=== PATIENT | female | born 1985 | race Caucasian/White ===

== ENCOUNTER 2016-10-27 08:36 | Day surgery (SDC) | payer OTHER, MEDICAID ==
[~2016-10-27] VITALS: Ht 165.1 cm; Wt 278.6 kg
--- NOTE | ~2016-10-27 | OR ---
PATIENT'S NAME: SANTIAGO RM [facility] AGE: 31 Y [address] ROOM: [place] [id number] LOCATION: GOBS ADMIT DATE: 10/27/2016 OR/Procedure Report DISCHARGE DATE: FAMILY PHYSICIAN: PHYSICIAN, NO ATTENDING PHYSICIAN: JAYLEN HERNANDEZ SURGEON: Jaylen Hernandez MD GROCERY STORE CLERK: Jay Slaughter MD. His assistance was required for adequate visualization of the cervix. DATE OF PROCEDURE: 10/27/2016 PREOPERATIVE DIAGNOSES: 1. Intrauterine at 15 weeks 0 days. 2. History of cervical insufficiency. 3. Chronic hypertension. 4. Obesity. POSTOPERATIVE DIAGNOSES: 1. Intrauterine at 15 weeks 0 days. 2. History of cervical insufficiency. 3. Chronic hypertension. 4. Obesity. PROCEDURE PERFORMED: Fry cervical cerclage placement. FINDINGS: Cervix closed and thick, evidence of previous cervical cerclage is noted, small amount of old blood noted in the vagina, cervix long and thick after the procedure. ESTIMATED BLOOD LOSS: 2 mL. ANESTHESIA: Spinal. COMPLICATIONS: None. INDICATIONS: The patient is a 31-year-old G4, P1-2-0-2 with intrauterine at 15 weeks 0 days. The patient's first was complicated by a 23-week delivery. In her next 2 pregnancies, she subsequently had prophylactic cerclage placed. She delivered at 32 weeks for labor and breech presentation via section with her second . Her third , she made it term and delivered via section. Given her history of previous , she desires cervical cerclage placement. She was counseled about the risks of surgery to include bleeding, infection, damage to surrounding organs and tissues including bowel, bladder, blood vessels, nerves. She is also counseled about the risk of loss with the procedure and rupture of membranes. The patient did report some bleeding PATIENT'S NAME: SANTIAGO RM [facility] AGE: 31 Y [address] ROOM: [place] [address] LOCATION: [facility] ADMIT DATE: 10/27/2016 OR/Procedure Report DISCHARGE DATE: FAMILY PHYSICIAN: PHYSICIAN, NO ATTENDING PHYSICIAN: JAYLEN HERNANDEZ with wiping on the morning of the procedure. However, heart tones were obtained and were normal via ultrasound and the patient denied any cramping. Therefore, it was decided to proceed with the procedure. DESCRIPTION OF PROCEDURE: The patient was taken to the operating room where spinal anesthesia was placed without difficulty. She was then placed in dorsal lithotomy position. She was prepped and draped in the usual sterile fashion. A time-out was performed. Her bladder was drained of urine. A weighted speculum was placed in the patient's vagina posteriorly and anteriorly. A retractor was used to visualize the cervix. A small amount of blood was noted in the vagina. The vagina was cleaned with Betadine again 3 times. Evidence of prior cerclage was noted. A stitch of 0-Prolene was placed from 12 o'clock to 9 o'clock and then from 9'o clock to 6'o clock and then from 6 o'clock to 3'o clock and then 3 o'clock to 12'o clock again. A bolster was placed and the suture was tied down with 12 knots at the 12 o'clock position. The strings were left long. The cervix was again noted to be long and thick. Instrument, sponge, and needle counts were correct at the conclusion of case. DISPOSITION: Mom taken to room for recovery, stable. MD ALEXANDRA POOL/bandar /[id number] d: 10/27/16 1234 t: 11/10/16 0845, OPERATIVE SUMMARY
[~2016-10-27 08:36] MED LIST: LEXAPRO10 MG PO; NIFEDIPINE ER60 M1 PO; PRENATAL 1+1)(P1 TAB PO
[2016-10-27 09:50] LABS: BASOPHIL % 0.2 %; EOSINOPHIL # 0.1 K/uL (0.0-0.5); EOSINOPHIL % 0.4 %; HEMATOCRIT 36.1 % (33.0-46.0); HEMOGLOBIN 12.5 g/dL (11.0-15.0); IMMATURE GRANULOCYTE # 0.1 K/uL (0.0-0.3); IMMATURE GRANULOCYTE % 0.5 %; LYMPHOCYTE # 2.7 K/uL (0.8-4.0); LYMPHOCYTE % 22.7 %; MCH 32.2 pg (27.0-34.0); MCHC 34.6 gm/dL (32.0-36.5); MONOCYTE # 0.7 K/uL (0.0-1.0); MONOCYTE % 5.4 %; MPV 9.9 fl (9.4-12.4); NEUTROPHIL # (ANC) 8.5 K/uL (1.8-7.8); NEUTROPHIL % 70.8 %; NRBC % 0 /100WBC (0-0.00); PLATELET COUNT 291 K/uL (150-450); RBC 3.88 M/uL (3.50-5.50); RDW-CV 13.6 % (11.9-14.6); WBC 12.1 K/uL (4.0-11.0)
== END 2016-10-27 18:10 | disposition disaster alternative care site (69) ==
LOC: GOBS 08:36 → GOBM 08:36
PROVIDERS: Obstetrics & Gynecology
PROC: 0UVC7ZZ Restriction of Cervix, Via Natural or Artificial Opening (ICD-10-PCS; principal; 2016-10-27)
DX: O34.32 Maternal care for cervical incompetence, second trimester (principal); Z3A.15 15 weeks gestation of pregnancy; O10.912 Unspecified pre-existing hypertension complicating pregnancy, second trimester; O34.219 Maternal care for unspecified type scar from previous cesarean delivery; O99.212 Obesity complicating pregnancy, second trimester; Z79.899 Other long term (current) drug therapy
CPT/HCPCS: G0463; J7120

== ENCOUNTER → 2016-12-02 | Outpatient (CLI) | payer MEDICAID | END | disposition disaster alternative care site (69) | LOC: GLAB 07:52 | DX: Z36 Encounter for antenatal screening of mother (principal) ==

== ENCOUNTER 2016-12-18 09:47 | Inpatient (IN) | payer MEDICAID ==
[~2016-12-18] VITALS: Ht 165.1 cm
--- NOTE | ~2016-12-18 | OR ---
[facility] 31 Y [address] ROOM: [place] [id number] LOCATION: GOBS ADMIT DATE: 12/18/2016 OR/Procedure Report DISCHARGE DATE: FAMILY PHYSICIAN: PHYSICIAN, NO ATTENDING PHYSICIAN: JAYLEN HERNANDEZ SURGEON: Jaylen Hernandez MD GARDEN MACHINERY MECHANIC: DATE OF PROCEDURE: 12/18/2016 PREOPERATIVE DIAGNOSES: 1. Intrauterine at 22 weeks 4 days. 2. Heavy vaginal bleeding. 3. History of cervical insufficiency with cerclage in place. 4. Cervical dilation. 5. Obesity. 6. Tobacco abuse. 7. Gestational diabetes, A1. 8. History of delivery x2. POSTOPERATIVE DIAGNOSES: 1. Intrauterine at 22 weeks 4 days. 2. Heavy vaginal bleeding. 3. History of cervical insufficiency with cerclage in place. 4. Cervical dilation. 5. Obesity. 6. Tobacco abuse. 7. Gestational diabetes, A1. 8. History of delivery x2. 9. Cervical laceration. PROCEDURES PERFORMED: 1. Exam under anesthesia. 2. Repair of cervical laceration. ANESTHESIA: General. FINDINGS: No cervical cerclage noted in the cervix or vagina. A 3 cm cervical laceration was noted at the 10 o'clock position extending up toward the uterus. Cervix dilated to 2 cm with clot noted at the internal os. heart tones 168 on ultrasound. After the procedure, the patient was noted to still have a clot over her cervix. Fluid pocket of 5.99. EBL intraoperatively of 250 mL, preoperatively 500 mL since arrival to Labor and Delivery. COMPLICATIONS: None. PATIENT'S NAME: SANTAIGO RM [facility] AGE: 31 Y [address] ROOM: [address] [address] LOCATION: GOBS ADMIT DATE: 12/18/2016 OR/Procedure Report DISCHARGE DATE: FAMILY PHYSICIAN: PHYSICIAN, NO ATTENDING PHYSICIAN: JAYLEN HERNANDEZ INDICATIONS: The patient is a 31-year-old G4, P1-2-0-2, with intrauterine at 22 weeks 4 days who presented to [place] today complaining of vaginal bleeding starting at 4:30. She also reports uterine cramping. The patient did report having intercourse last night around 11:30 p.m. The patient was noted to be bleeding heavily, could not be adequately examined in [place], and therefore was transferred here. This patient's has been complicated by a history of cervical insufficiency with a 23-week delivery in 2003, followed by a term delivery in 2006 vaginal that had a prophylactic cerclage, and then a 32-week delivery via for labor and breech presentation that also had a prophylactic cerclage placed. The patient had a prophylactic cerclage placed for this . She has had a prior episode of vaginal bleeding without cervical dilation. She presented here and was noted to have heavy vaginal bleeding. She did have a pack in the vagina, 5 sponges, that were removed. Adequate visualization of the cervix could not be performed due to the obesity and heavy bleeding. The stitch was palpated and could be cut just with palpation with the scissors, and this was removed as it had pulled out. The patient was noted to continue to bleed heavily. EBL was at least 500. Her hemoglobin prior to transfer was 11.7, was checked here, and was found to be 9.4. Given that we could not adequately visualize what was going on, and the patient was bleeding heavily, it was recommended we take her to the OR for examination under anesthesia. The patient was counseled about this. She was also counseled about the risk of delivery while we were in the OR. She and her both were wanting resuscitation of this fetus, and therefore Pediatrics was consulted to discuss viability with the patient's as the patient needed to go back to the OR immediately due to the bleeding. DESCRIPTION OF PROCEDURE: The patient was taken to the OR where she was placed under general anesthesia without complications. She was placed in dorsal lithotomy position. She was prepped externally, but not internally given her heavy bleeding and unknown source. A time-out was performed. A weighted speculum was placed in the patient's vagina posteriorly, and right- angled retractors were used anteriorly and on the side to visualize the cervix. The patient was noted to have a 3 to 4 cm defect in her cervix at the 10 o'clock position extending up. She was also noted to be about 2 cm dilated and had a large amount of clot at her internal os that could be palpated. This defect was closed with 5 [id number] sutures of 0 Vicryl. Bleeding was noted to significantly decrease after this. An ultrasound was performed at the bedside, and heart tones were noted to be 168. There was a large amount of clot over the cervix. Of note, the patient has had multiple vaginal ultrasounds in this and does not have a placenta previa. Given that the bleeding had minimized and the patient was stable, the procedure was determined to be over at this time, and delivery of the fetus was not going to be performed in the OR. Instrument, sponge, and needle counts were correct at PATIENT'S NAME: SANTIAGO RM [facility] AGE: 31 Y [address] ROOM: [place] [address] LOCATION: [facility] ADMIT DATE: 12/18/2016 OR/Procedure Report DISCHARGE DATE: FAMILY PHYSICIAN: PHYSICIAN, DELMY ATTENDING PHYSICIAN: JAYLEN HERNANDEZ the conclusion of the case. DISPOSITION: Mother stable, to her room for recovery. MD ALEXANDRA POOL/bandar /[id number] d: 12/18/16 1523 t: 12/19/16 1343, OPERATIVE SUMMARY
--- NOTE | ~2016-12-18 | HP ---
PATIENT'S NAME: SANTIAGO RM [facility] AGE: 31 Y [address] ROOM: [place] [address] LOCATION: GO ADMIT DATE: 12/18/2016 History & Physical DISCHARGE DATE: FAMILY PHYSICIAN: PHYSICIAN, NO ATTENDING PHYSICIAN: AALN ESTRELLA DATE OF SERVICE: CHIEF COMPLAINT: Vaginal bleeding. HISTORY OF PRESENT ILLNESS: The patient is a 31-year-old G4, P1-2-0-2 with intrauterine at 22 weeks 4 days who presented to the ER in [place] today complaining of vaginal bleeding. She stated that the vaginal bleeding started around 4:30 this morning and was very heavy. At the ER there, they were unable to visualize the patient's cervix due to the large amount of bleeding and thus transportation was required. This is complicated by history of a 23 week delivery for which was felt to be due to cervical insufficiency. She had a prophylactic cerclage placed in this as she has in her other 2 pregnancies after her 23 week delivery. The patient was transferred here via ambulance. Her hemoglobin prior to transfer was 11.7 and heart tones were obtained. Upon presentation, the patient was bleeding very heavily and therefore she was taken to the OR, which will be dictated in operative note shortly. PAST MEDICAL HISTORY: 1. Obesity. 2. Gestational diabetes. 3. Chronic hypertension. 4. Tobacco abuse. PAST SURGICAL HISTORY: 1. section. 2. Gallbladder. 3. Tonsils. OB-ESTIMATION MANAGER HISTORY: She is a -2-0-2. She has a history of a 23-week delivery in 2003 in [place] that was vaginal. Her next was in 2006. In 2006, she did make it to 40 weeks. She has prophylactic cerclage placed with that and delivered vaginally. Her next delivery was in 2007. She had a prophylactic cerclage in that . She delivered at 32 weeks via low transverse section for labor and breech presentation. She did have a history of gestational diabetes A1 at her last . PATIENT'S NAME: SANTIAGO RM [facility] AGE: 31 Y [address] ROOM: [place] [address] LOCATION: GOBS ADMIT DATE: 12/18/2016 History & Physical DISCHARGE DATE: FAMILY PHYSICIAN: PHYSICIAN, NO ATTENDING PHYSICIAN: ALAN ESTRELLA FAMILY HISTORY: Noncontributory. SOCIAL HISTORY: Tobacco abuse. No alcohol or drug use. REVIEW OF SYSTEMS: Negative, except as noted in the HPI. PHYSICAL EXAMINATION: VITAL SIGNS: Blood pressure on arrival was 101/70 with a heart rate of 118. GENERAL: She is alert and oriented and was appropriately upset given the situation. A speculum exam was done at the bedside. The patient was noted to have 5 what appeared to be Raytecs in her vaginal cavity that were placed prior to transfer these were all removed. The patient had a large amount of clot and continued to bleed and with speculum placement clots were not able to be visualized due to obesity and heavy vaginal bleeding. The stitch was palpated and long scissors were used to clip this stitch as the patient was noted to be 2 cm dilated with this heavy vaginal bleeding. The patient continued to bleed heavily and adequate visualization of the cervix could not be performed due to maternal obesity and the heavy bleeding. Therefore, it was recommended that we take her back to the OR. ASSESSMENT: The patient is a 31-year-old G4, P1-2-0-2 with intrauterine at 22 weeks 4 days with heavy vaginal bleeding concerning for placental abruption as well as labor causing tearing of her cervical cerclage. PLAN: 1. The patient was taken to the operating room where a defect in her cervix of about 3 to 4 cm at the 10 o'clock position was noted extending from her cervix back up towards her uterine cavity. It was repaired with five [id number] suture of 0 Vicryl. Her bleeding significantly decreased and an ultrasound performed at an OR showed clot over her cervix; however, heart tones of 168, given that her bleeding had significantly decreased and there was positive heart tones and she was stable. She was extubated and brought back to the floor for observation of her bleeding. Our plan will be to continue to observe the patient to recheck a hemoglobin at noon. She did have a hemoglobin checked prior to going to the OR that was 9.4 down from 11.7, prior to transfer. We will do pad weights of her bleeding, if her bleeding stays at what it is now or less then we will possibly talk about transfer to [facility] for observation there until viability versus staying here until viability and transfer to [facility] at that time. When the PATIENT'S NAME: SANTIAGO RM [facility] AGE: 31 Y [address] ROOM: [address] [address] LOCATION: [facility] ADMIT DATE: 12/18/2016 History & Physical DISCHARGE DATE: FAMILY PHYSICIAN: PHYSICIAN, NO ATTENDING PHYSICIAN: ALAN ESTRELLA patient's bleeding increases then I would recommend delivery of the mother due to maternal emergency with hemorrhage due to placental abruption. The patient does have 4 units crossed in case bleeding picks up and she needs a transfusion. All this was explained to the patient and her . All questions were answered. The cloth bin packer did come in and speak with the patient's , while the patient was in the OR about resuscitation and given gestational age. It was decided against resuscitation at this point. MD ALEXANDRA POOL/bandar /[id number] D: T: HISTORY & PHYSICAL
[2016-12-18 09:59] LABS: BASOPHIL % 0.2 %; EOSINOPHIL # 0.1 K/uL (0.0-0.5); EOSINOPHIL % 0.3 %; HEMATOCRIT 27.9 % (33.0-46.0); HEMOGLOBIN 9.7 g/dL (11.0-15.0); IMMATURE GRANULOCYTE # 0.2 K/uL (0.0-0.3); IMMATURE GRANULOCYTE % 1.3 %; LYMPHOCYTE # 2.3 K/uL (0.8-4.0); LYMPHOCYTE % 13.6 %; MCH 32.2 pg (27.0-34.0); MCHC 34.8 gm/dL (32.0-36.5); MCV 92.7 fl (83.0-98.0); MONOCYTE # 0.9 K/uL (0.0-1.0); MONOCYTE % 5.3 %; MPV 10.3 fl (9.4-12.4); NEUTROPHIL # (ANC) 13.7 K/uL (1.8-7.8); NEUTROPHIL % 79.3 %; NRBC % 0 /100WBC (0-0.00); PLATELET COUNT 290 K/uL (150-450); RBC 3.01 M/uL (3.50-5.50); RDW-CV 13.5 % (11.9-14.6); WBC 17.2 K/uL (4.0-11.0)
[2016-12-18 12:03] LABS: BASOPHIL % 0.1 %; EOSINOPHIL % 0.1 %; HEMATOCRIT 25.4 % (33.0-46.0); HEMOGLOBIN 8.9 g/dL (11.0-15.0); IMMATURE GRANULOCYTE # 0.2 K/uL (0.0-0.3); IMMATURE GRANULOCYTE % 1.1 %; LYMPHOCYTE # 1.7 K/uL (0.8-4.0); LYMPHOCYTE % 8.4 %; MCH 32.6 pg (27.0-34.0); MONOCYTE # 0.8 K/uL (0.0-1.0); MONOCYTE % 3.7 %; MPV 10.1 fl (9.4-12.4); NEUTROPHIL % 86.6 %; NRBC % 0 /100WBC (0-0.00); PLATELET COUNT 301 K/uL (150-450); RBC 2.73 M/uL (3.50-5.50); RDW-CV 13.7 % (11.9-14.6); WBC 20.8 K/uL (4.0-11.0)
[2016-12-18 16:26] LABS: BASOPHIL % 0.1 %; HEMATOCRIT 23.3 % (33.0-46.0); HEMOGLOBIN 8.1 g/dL (11.0-15.0); IMMATURE GRANULOCYTE # 0.2 K/uL (0.0-0.3); IMMATURE GRANULOCYTE % 0.9 %; LYMPHOCYTE # 1.6 K/uL (0.8-4.0); LYMPHOCYTE % 8.3 %; MCH 32.7 pg (27.0-34.0); MCHC 34.8 gm/dL (32.0-36.5); MONOCYTE # 0.5 K/uL (0.0-1.0); MONOCYTE % 2.4 %; MPV 10.1 fl (9.4-12.4); NEUTROPHIL % 88.3 %; NRBC % 0 /100WBC (0-0.00); RBC 2.48 M/uL (3.50-5.50); RDW-CV 13.6 % (11.9-14.6)
[2016-12-18 16:27] LABS: PLATELET COUNT 238 K/uL (150-450); WBC 19.2 K/uL (4.0-11.0)
[2016-12-18 21:49] LABS: BASOPHIL % 0.1 %; HEMATOCRIT 22.6 % (33.0-46.0); IMMATURE GRANULOCYTE # 0.2 K/uL (0.0-0.3); IMMATURE GRANULOCYTE % 0.9 %; LYMPHOCYTE # 3.6 K/uL (0.8-4.0); LYMPHOCYTE % 17.6 %; MCH 32.6 pg (27.0-34.0); MCV 93.4 fl (83.0-98.0); MONOCYTE # 1.1 K/uL (0.0-1.0); MONOCYTE % 5.2 %; MPV 10.3 fl (9.4-12.4); NEUTROPHIL # (ANC) 15.4 K/uL (1.8-7.8); NEUTROPHIL % 76.2 %; NRBC % 0 /100WBC (0-0.00); PLATELET COUNT 249 K/uL (150-450); RBC 2.42 M/uL (3.50-5.50); RDW-CV 13.6 % (11.9-14.6)
[2016-12-18 21:50] LABS: HEMOGLOBIN 7.9 g/dL (11.0-15.0); WBC 20.3 K/uL (4.0-11.0)
[2016-12-19 04:25] LABS: BASOPHIL % 0.1 %; HEMATOCRIT 21.6 % (33.0-46.0); IMMATURE GRANULOCYTE # 0.3 K/uL (0.0-0.3); IMMATURE GRANULOCYTE % 1.4 %; LYMPHOCYTE # 2.2 K/uL (0.8-4.0); LYMPHOCYTE % 11.4 %; MCH 31.7 pg (27.0-34.0); MCHC 33.8 gm/dL (32.0-36.5); MCV 93.9 fl (83.0-98.0); MONOCYTE # 0.4 K/uL (0.0-1.0); MONOCYTE % 2.3 %; MPV 10.1 fl (9.4-12.4); NEUTROPHIL # (ANC) 16.1 K/uL (1.8-7.8); NEUTROPHIL % 84.8 %; NRBC % 0 /100WBC (0-0.00); PLATELET COUNT 234 K/uL (150-450); RDW-CV 13.7 % (11.9-14.6)
[2016-12-19 04:31] LABS: HEMOGLOBIN 7.3 g/dL (11.0-15.0)
== END 2016-12-19 09:00 | disposition critical access hospital (66) | DRG 781 ==
LOC: GOBM 09:47 → GOBS 09:47 → GOBM 09:48 → GOBS 12-19 09:00
PROVIDERS: ADMIT Obstetrics & Gynecology
PROC: 0UQC7ZZ Repair Cervix, Via Natural or Artificial Opening (ICD-10-PCS; principal; 2016-12-18)
DX: O45.92 Premature separation of placenta, unspecified, second trimester (principal); O24.410 Gestational diabetes mellitus in pregnancy, diet controlled; O34.32 Maternal care for cervical incompetence, second trimester; E66.9 Obesity, unspecified; O16.2 Unspecified maternal hypertension, second trimester; O71.3 Obstetric laceration of cervix; O76 Abnormality in fetal heart rate and rhythm complicating labor and delivery; O99.212 Obesity complicating pregnancy, second trimester; O99.012 Anemia complicating pregnancy, second trimester; D64.9 Anemia, unspecified; O09.212 Supervision of pregnancy with history of pre-term labor, second trimester; Z3A.22 22 weeks gestation of pregnancy
CPT/HCPCS: G0463; J0702; J3010; J7120; P9016; P9045

== ENCOUNTER → 2016-12-19 | Outpatient (CLI) | payer MEDICAID | END | disposition disaster alternative care site (69) | LOC: GAIR 09:15 | DX: O46.8X2 Other antepartum hemorrhage, second trimester (principal); N93.9 Abnormal uterine and vaginal bleeding, unspecified; O71.3 Obstetric laceration of cervix; O24.419 Gestational diabetes mellitus in pregnancy, unspecified control; O34.32 Maternal care for cervical incompetence, second trimester; I10 Essential (primary) hypertension; Z3A.22 22 weeks gestation of pregnancy; Z79.899 Other long term (current) drug therapy; Z88.8 Allergy status to other drugs, medicaments and biological substances | CPT/HCPCS: A0422; A0431; A0436; J2405; J7030 ==